=== PATIENT | female | born 1935 | race Caucasian/White ===

== ENCOUNTER → 2016-10-23 | Outpatient (CLI) | payer MEDICARE, OTHER ==
[~2016-10-23] MED LIST: ASP81CT; BENZ-13 PO; CLD600T; FAMO20TA13; FLX20C; LEVO500T2 PO; OMG1KC; OSTEO BI FLEX; PRILOSEC; SMV20T; [UNRECOGNIZED DRUG - OTHER]
--- OUTSIDE RECORDS SUMMARY | 2016-10-23 10:02 | XMS REPORT | Continuity of Care Document ---
Author Author [facility] Organization [facility] Address Unknown Phone Unavailable Allergies Active Description Code Type Severity Reaction Onset Reported/Identified Relationship to Patient Clinical Status Yes No Known Drug Allergies [id number] Drug Allergy Unknown N/ A 06/02/2007 Medications Problems Date Dx Coded Attending Type Code Diagnosis Diagnosed By 06/02/2010 Ot 535.40 06/02/2010 Ot V12.72 06/02/2010 Ot V45.89 06/02/2010 Ot V67.09 10/16/2013 MARIO NDIAYE DO Ot V43.65 10/16/2013 MARIO NDIAYE DO Ot V54.81 10/16/2013 MARIO NDIAYE DO Ot V57.1 02/07/2014 VENTURA ABDI APRN Ot V43.65 02/07/2014 VENTURA ABDI 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 Ot V54.81 02/07/2014 VENTURA ABDI APRN Ot V57.1 08/27/2014 GALO SOLO DO Ot V76.12 09/11/2014 GALO SOLO DO Ot 433.10 09/11/2014 GALO SOLO DO Ot 441.4 06/18/2015 GATO HARRIS DO Ot J02.9 06/18/2015 GATO HARRIS DO Ot J40 06/18/2015 GATO HARRIS DO Ot R05 08/06/2015 Ot 786.05 08/06/2015 Ot 786.2 08/06/2015 Ot V76.12 08/06/2015 Ot 733.90 08/06/2015 Ot V76.12 08/06/2015 Ot 493.22 08/06/2015 Ot 786.2 08/06/2015 Ot V76.12 08/06/2015 JAILYN SMITH Ot 536.8 08/06/2015 JAILYN SMITH Ot 784.99 08/06/2015 JAILYN SMITH Ot 786.2 08/06/2015 SHAUNA SCHRADER DO Ot 787.21 08/06/2015 SOLO DO, GALO Ot V76.12 08/06/2015 ZELDA MARIO AMBROSIO Ot 285.9 08/06/2015 ZELDA MARIO AMBROSIO Ot 780.79 08/06/2015 ZELDA DOMARIO Ot 719.45 08/06/2015 ZELDA DOMARIO Ot 722.10 08/06/2015 ZELDA DOMARIO Ot 738.4 08/06/2015 SOLO DO, GALO Ot V76.12 08/06/2015 SOLO DO, GALO Ot 433.10 08/06/2015 SOLO DO, GALO Ot 441.4 09/03/2015 SOLO DO, GALO Ot Z12.31 Procedures Results Encounters ACCT No. Visit Date/Time Discharge Status Pt. Type Provider Facility Loc./Unit Complaint [id number] 08/06/2015 10:30:00 2014 23:59:59 CLS Outpatient SOLOALFONSO AMBROSIO GALO [facility] RAD [id number] 06/18/2015 16:37:00 2014 18:52:00 DIS Emergency GATO HARRIS DO [facility] ER [id number] 08/10/2014 08:56:00 2013 23:59:59 CLS Outpatient EDIL AMBROSIO GALO [facility] RAD [id number] 08/01/2014 09:00:00 2013 23:59:59 CLS Outpatient EDIL AMBROSIO GALO [facility] RAD [id number] 01/25/2014 09:01:00 2013 16:00:00 DIS Outpatient VENTURA ABDI APRN [facility] REHAB [id number] 01/26/2014 13:33:00 2013 23:59:59 CLS Outpatient ZELDA AMBROSIO MARIO Summers [facility] RAD [id number] 09/15/2013 12:57:00 2013 10:24:00 DIS Outpatient ZELDA AMBROSIO MARIO Summers [facility] REHAB [id number] 07/28/2013 08:55:00 2012 23:59:59 CLS Outpatient ZELDA MARIO AMBROSIO [facility] [id number] 07/13/2013 08:58:00 2012 23:59:59 CLS Outpatient GALO SOLO DO [facility] RAD [id number] 03/13/2013 09:59:00 2012 23:59:59 CLS Outpatient RACIEL DO SHAUNA Radha [facility] RAD [id number] 02/08/2013 08:32:00 2012 23:59:59 CLS Outpatient JAILYN SMITH [facility] RAD [id number] 08/06/2015 10:30:00 Document Registration [id number] 05/19/2012 11:12:00 Document Registration [id number] 08/07/2011 09:25:00 Document Registration [id number] 05/27/2011 09:47:00 Document Registration [id number] 05/13/2011 11:22:00 Document Registration [id number] 05/04/2011 08:33:00 Document Registration [id number] 06/02/2010 08:02:00 Document Registration [id number] 04/22/2010 08:04:00 Document Registration
--- NOTE | 2016-10-23 12:41 | Diagnostic Imaging Report ---
Bilateral screening mammogram. The current study was also evaluated with a Computer Aided Detection (CAD) system. INDICATION: Screening. No current complaints stated on the questionnaire. COMPARISON: 08/06/2015. FINDINGS: The breasts are composed of heterogeneously dense parenchyma which may decrease mammographic sensitivity. There is a focal asymmetry seen in the slightly medial central aspect of the right breast, favored to be summation artifact of parenchyma. It appears, however, more prominent compared to the prior exam. The left breast demonstrates no definite mass or suspicious calcifications. IMPRESSION: Questionable 8-mm focal central asymmetry in the right breast seen. Focal compression views and ultrasound evaluation recommended. ACR BI-RADS Category 0: Incomplete. (Needs additional imaging evaluation). Result letter will be mailed to the patient. Note: At least 10% of breast cancer is not imaged by mammography. Dictated by: Dictated on workstation # [id number]
== END ==
LOC: RAD 09:58
PROVIDERS: ATTEND Internal Medicine
DX: Z12.31 Encounter for screening mammogram for malignant neoplasm of breast (principal)
CPT/HCPCS: 77067

== ENCOUNTER → 2016-11-02 | Outpatient (CLI) | payer MEDICARE, OTHER ==
--- OUTSIDE RECORDS SUMMARY | 2016-11-02 08:52 | XMS REPORT | Continuity of Care Document ---
Author Author [facility] Organization [facility] Address Unknown Phone Unavailable Allergies Active Description Code Type Severity Reaction Onset Reported/Identified Relationship to Patient Clinical Status Yes No Known Drug Allergies [id number] Drug Allergy Unknown N/ A 06/02/2007 Medications Problems Date Dx Coded Attending Type Code Diagnosis Diagnosed By 06/02/2010 Ot 535.40 06/02/2010 Ot V12.72 06/02/2010 Ot V45.89 06/02/2010 Ot V67.09 10/16/2013 MARIO NDIAYE DO Ot V43.65 KNEE JOINT REPLACEMENT STATUS 10/16/2013 MARIO NDIAYE DO Ot V54.81 AFTERCARE FOLLOWING JOINT REPLACEMENT 10/16/2013 MARIO NDIAYE DO Ot V57.1 PHYSICAL THERAPY NEC 02/07/2014 VENTURA ABDI APRN Ot V43.65 KNEE JOINT REPLACEMENT STATUS 02/07/2014 VENTURA ABDI ELECTROPHYSIOLOGY TECHNOLOGIST Ot V54.81 AFTERCARE FOLLOWING JOINT REPLACEMENT 02/07/2014 VENTURA ABDI APRN Ot V57.1 PHYSICAL THERAPY NEC 08/27/2014 GALO SOLO DO Ot V76.12 09/11/2014 GALO SOLO DO Ot 433.10 09/11/2014 GALO SOLO DO Ot 441.4 06/18/2015 GATO HARRIS DO Ot J02.9 ACUTE PHARYNGITIS, UNSPECIFIED 06/18/2015 GATO HARRIS DO Ot J40 BRONCHITIS, NOT SPECIFIED ACUTE OR CH 06/18/2015 GATO HARRIS DO Ot R05 COUGH 08/06/2015 Ot 786.05 08/06/2015 Ot 786.2 08/06/2015 Ot V76.12 08/06/2015 Ot 733.90 08/06/2015 Ot V76.12 08/06/2015 Ot 493.22 08/06/2015 Ot 786.2 08/06/2015 Ot V76.12 08/06/2015 JAILYN SMITH RPA-C Ot 536.8 08/06/2015 JAILYN SMITH RPA-C Ot 784.99 08/06/2015 JAILYN SMITH RPA-C Ot 786.2 08/06/2015 SHAUNA SCHRADER DO Ot 787.21 08/06/2015 SOLO DO GALO Ot V76.12 08/06/2015 ZELDA DO MARIO F Ot 285.9 08/06/2015 ZELDA DO MARIO F Ot 780.79 08/06/2015 ZELDA DO MARIO F Ot 719.45 08/06/2015 ZELDA DO MARIO F Ot 722.10 08/06/2015 ZELDA DO MARIO F Ot 738.4 08/06/2015 SOLO DO, GALO Ot V76.12 08/06/2015 SOLO DO, GALO Ot 433.10 08/06/2015 SOLO DO, GALO Ot 441.4 09/03/2015 SOLO DO, GALO Ot Z12.31 10/23/2016 Ot 786.05 SHORTNESS OF BREATH 10/23/2016 Ot 786.2 COUGH 10/23/2016 Ot 733.90 BONE CARTILAGE DIS NOS 10/23/2016 Ot V76.12 OTH SCREEN MAMMO-MALIGN NEOPLASM OF OLGA LIDIA 10/23/2016 Ot 493.22 CHRONIC OBSTRUCTIVE ASTHMA, W (ACUTE) EX 10/23/2016 Ot 786.2 COUGH 10/23/2016 Ot V76.12 OTH SCREEN MAMMO-MALIGN NEOPLASM OF OLGA LIDIA 10/23/2016 JAILYN SMITH RPA-C Ot 536.8 STOMACH FUNCTION DIS NEC 10/23/2016 JAILYN SMITH RPA-C Ot 784.99 OTHER SYMPTOMS INVOLVING HEAD AND NECK 10/23/2016 JAILYN SMITH RPA-C Ot 786.2 COUGH 10/23/2016 SHAUNA SCHRADER DO Ot 787.21 DYSPHAGIA, ORAL PHASE 10/23/2016 SOLO DO GALO Ot V76.12 OTH SCREEN MAMMO-MALIGN NEOPLASM OF OLGA LIDIA 10/23/2016 ZELDA DO MARIO F Ot 285.9 ANEMIA NOS 10/23/2016 ZELDA AMBROSIO MARIO F Ot 780.79 OTH MALAISE FATIGUE 10/23/2016 ZELDA AMBROSIO MARIO F Ot 719.45 JOINT PAIN-PELVIS 10/23/2016 MARIO NDIAYE DO Ot 722.10 LUMBAR DISC DISPLACEMENT 10/23/2016 MARIO NDIAYE DO Ot 738.4 ACQ SPONDYLOLISTHESIS 10/23/2016 GALO SOLO DO Ot V76.12 OT SCREEN MAMMO-MALIGN NEOPLASM OF OLGA LIDIA 10/23/2016 GALO SOLO DO Ot 433.10 CAROTID ARTERY OCCLUSION W O CEREBRAL IN 10/23/2016 GALO SOLO DO Ot 441.4 ABDOM AORTIC ANEURYSM 10/23/2016 GALO SOLO DO Ot Z12.31 ENCNTR SCREEN MAMMOGRAM FOR MALIGNANT NE Procedures Results Encounters ACCT No. Visit Date/Time Discharge Status Pt. Type Provider Facility Loc./Unit Complaint [id number] 08/06/2015 10:30:00 2014 23:59:59 CLS Outpatient GALO SOLO DO [facility] RAD SCREENING [id number] 06/18/2015 16:37:00 2014 18:52:00 DIS Emergency KIMBERLYRISSA Black DOA Kimberly [facility] ER COUGH [id number] 08/10/2014 08:56:00 2013 23:59:59 CLS Outpatient GALO SOLO DO [facility] RAD AAA,CAROTID STENOSIS [id number] 08/01/2014 09:00:00 2013 23:59:59 CLS Outpatient GALO SOLO DO [facility] RAD SCREENING [id number] 01/25/2014 09:01:00 2013 16:00:00 DIS Outpatient VENTURA ABDI APRN [facility] REHAB S/P L TKA GRADE 1 PCL STRAIN [id number] 01/26/2014 13:33:00 2013 23:59:59 CLS Outpatient MARIO NDIAYE DO [facility] RAD LOW BACK PAIN,HIP PAIN [id number] 09/15/2013 12:57:00 2013 10:24:00 DIS Outpatient MARIO NDIAYE DO [facility] REHAB LEFT TKR [id number] 07/28/2013 08:55:00 2012 23:59:59 CLS Outpatient ZELDA MARIO AMBROSIO [facility] HH ANEMIA, FATIGUE [id number] 07/13/2013 08:58:00 2012 23:59:59 CLS Outpatient GALO SOLO DO [facility] RAD ROUTINE [id number] 03/13/2013 09:59:00 2012 23:59:59 CLS Outpatient DEFFENBAUGH SHAUNA AMBROSIO [facility] RAD DIFFICULTY SWALLOWING [id number] 02/08/2013 08:32:00 2012 23:59:59 CLS Outpatient JAILYN SMITH [facility] RAD CHRONIC COUGH,CHOKING [id number] 10/23/2016 09:58:00 ACT Outpatient GALO SOLO DO [facility] RAD SCREENING [id number] 08/06/2015 10:30:00 Document Registration [id number] 05/19/2012 11:12:00 Document Registration [id number] 08/07/2011 09:25:00 Document Registration [id number] 05/27/2011 09:47:00 Document Registration [id number] 05/13/2011 11:22:00 Document Registration [id number] 05/04/2011 08:33:00 Document Registration [id number] 06/02/2010 08:02:00 Document Registration [id number] 04/22/2010 08:04:00 Document Registration
--- NOTE | 2016-11-02 09:28 | Diagnostic Imaging Report ---
EXAMINATION: Right breast diagnostic mammogram. INDICATION: Asymmetries in the central slightly medial aspect of the right breast. CAD is utilized. The current study was also evaluated with a Computer Aided Detection (CAD) system. FINDINGS: When evaluated with focal compression views the previously seen asymmetries appear less prominent and may relate to summation artifact of the background parenchyma. IMPRESSION: Less prominent asymmetry and focal compression views favor of summation artifact of parenchyma. Ultrasound evaluation pending. BI-RADS 0. ACR BI-RADS Category 0: Incomplete. (Needs additional imaging evaluation). Result letter will be mailed to the patient. Note: At least 10% of breast cancer is not imaged by mammography. Dictated by: Dictated on workstation # [id number]
--- NOTE | 2016-11-02 14:53 | Diagnostic Imaging Report ---
EXAMINATION: Right breast ultrasound. INDICATION: Asymmetry along the central slightly medial aspect of the right breast. FINDINGS: The entire breast in the four-quadrants and retroareolar region were scanned with no definite abnormality seen. IMPRESSION: Negative study. The mammographic asymmetry is likely related to summation artifact of parenchyma. A routine followup mammogram in 12 months is recommended. ACR BI-RADS Category 1: Negative. Dictated by: Dictated on workstation # [id number]
== END ==
LOC: RAD 08:47
PROVIDERS: ATTEND Internal Medicine
DX: N64.89 Other specified disorders of breast (principal)
CPT/HCPCS: 76641

== ENCOUNTER → 2017-10-25 | Outpatient (CLI) | payer MEDICARE, OTHER ==
--- NOTE | 2017-10-25 12:23 | Diagnostic Imaging Report ---
INDICATION: Routine screening. COMPARISON: 10/23/2016 and 08/06/2015. TECHNIQUE: Screening digital mammography was performed bilaterally with a Computer Aided Detection (CAD) system. FINDINGS: Both breasts demonstrate moderate parenchymal heterogeneity and increased density, limiting the sensitivity of mammography. No dominant mass or malignant appearing microcalcifications are seen. The axillae are unremarkable. IMPRESSION: No mammographic features suspicious for malignancy are identified. ACR BI-RADS Category 1: Negative. Result letter will be mailed to the patient. Note: At least 10% of breast cancer is not imaged by mammography. Dictated by: Dictated on workstation # [id number]
== END ==
LOC: RAD 08:04
PROVIDERS: ATTEND Internal Medicine
DX: Z12.31 Encounter for screening mammogram for malignant neoplasm of breast (principal)
CPT/HCPCS: 77067

== ENCOUNTER → 2018-11-18 | Outpatient (CLI) | payer MEDICARE, OTHER ==
[~2018-11-18] MED LIST changes: -BENZ-13 PO; +BENZ100C18 PO
--- NOTE | 2018-11-18 19:33 | Diagnostic Imaging Report ---
INDICATION: Routine screening. COMPARISON: Prior mammogram from 10/25/2017 and 10/23/2016. EXAMINATION: 2D and 3D bilateral screening mammography was performed with CAD. The current study was also evaluated with a Computer Aided Detection (CAD) system. FINDINGS: Both breasts are heterogeneously dense, limiting the sensitivity of mammography. No mass or malignant appearing microcalcifications are seen. The axillae are unremarkable. IMPRESSION: No mammographic features suspicious for malignancy are identified. ACR BI-RADS Category 1: Negative. Result letter will be mailed to the patient. Note: At least 10% of breast cancer is not imaged by mammography. Dictated by: Dictated on workstation # [id number]
== END ==
LOC: RAD 08:02
PROVIDERS: ATTEND Internal Medicine
DX: Z12.31 Encounter for screening mammogram for malignant neoplasm of breast (principal)
CPT/HCPCS: 77067

== ENCOUNTER 2023-03-30 07:51 | Emergency (ER) | payer MEDICARE, OTHER ==
[~2023-03-30] VITALS: Ht 167 cm; Wt 55.0 kg
--- NOTE | 2023-03-30 08:14 | ED Cough/URI ---
General Chief Complaint: Cough/Cold/Flu Symptoms Stated Complaint: SORE THROAT | COUGH Nursing Triage Note: PT AMB TO RM 6 PT CO OF SORETHROAT COUGH DENIES FEVERS, [place] 5/10. PT ALSO CO OF VERTIGO AT TIMES Source: patient Exam Limitations: no limitations History of Present Illness Date Seen by Provider: Mar 30, 2023 Time Seen by Provider: 08:06 Initial Comments 87-year-old female presents for cough, sore throat and mild headache since Sun day. She denies fevers or chills. Cough is productive of yellow sputum. No sick contacts. No chest pain. She gets short of breath during her coughing spells but not outside of this. She denies any medical comorbidities. All other systems reviewed and negative except documented per HPI. Voice recognition software was used to help create this chart Allergies and Home Medications Allergies Coded Allergies: No Known Drug Allergies (Verified Allergy, Unknown, 06/02/07) Patient Home Medication List Home Medication List Reviewed: Yes Aspirin (Aspirin) 81 Mg Tablet, (Reported) Entered as Reported by: JAMAAL BRADY on 06/02/07 1037 Benzonatate (Tessalon Perles) 100 Mg Capsule, 1-2 TAB PO TID Prescribed by: GATO HARRIS on 06/18/15 180 Calcium Carbonate/Vitamin D3 (Rubio-600 W/Vit D Tablet) 1 Tab Tablet, (Reported) Entered as Reported by: JAMAAL BRADY on 06/02/07 1034 Famotidine (Pepcid) 20 Mg Tablet, (Reported) Entered as Reported by: JAMAAL BRADY on 06/02/07 1038 Fluoxetine Hcl (Prozac) 20 Mg Capsule, (Reported) Entered as Reported by: JAMAAL BRADY on 06/02/07 1037 Levofloxacin (Levaquin) 500 Mg Tablet, 500 MG PO DAILY Prescribed by: GATO HARRIS on 06/18/15 1809 [place] 3 Polyunsat Fatty Acids (Fish Oil) 1,000 Mg Cap, (Reported) Entered as Reported by: JAMAAL BRADY on 06/02/07 1036 Simvastatin (Zocor) 20 Mg Tablet, (Reported) Entered as Reported by: JAMAAL BRADY on 06/02/07 1035 [Osteo Bi Flex] , (Reported) Entered as Reported by: JAMAAL BRADY on 06/02/07 1036 [Prilosec] , (Reported) Entered as Reported by: JAMAAL BRADY on 06/02/07 1038 [Womens Vit.] , (Reported) Entered as Reported by: JAMAAL BRADY on 06/02/07 1035 Review of Systems Review of Systems Constitutional: see HPI Past Mzzeibw-Gajpwy-Dvbsur Hx Patient Social History Tobacco Use?: No Substance use?: No Alcohol Use?: No Pt feels they are or have been: No Immunizations Up To Date First/Initial COVID19 Vaccinat: NUVIA Second COVID19 Vaccination Jonathan: YES Third COVID19 Vaccination Date: YES Seasonal Allergies Seasonal Allergies: No Past Medical History Abdominal, Appendectomy, Hysterectomy, Joint Replacement, Oophorectomy, Orthopedic Asthma High Cholesterol PAINT MIXER History: Menopausal Gastroesophageal Reflux, Hiatal Hernia Arthritis, Fractures Anxiety, Depression Physical Exam Vital Signs - First Documented 03/30/23 08:05 Temp 37.2 Pulse 56 Resp 16 B/P (MAP) 177/106 (129) Pulse Ox 96 Capillary Refill : Less Than 3 Seconds Height: 5'6.00" Weight: 150lbs. oz. 68.035687xy; 19.00 BMI Method:Stated General Appearance: no apparent distress HEENT: PERRL/EOMI, normal ENT inspection, TMs normal, pharynx normal Neck: non-tender, full range of motion, supple, normal inspection Respiratory: chest non-tender, lungs clear, normal breath sounds, no respirator y distress, no accessory muscle use Cardiovascular: regular rate, rhythm, no murmur Gastrointestinal: normal bowel sounds, non tender, soft, no organomegaly Extremities: normal range of motion, non-tender, normal inspection, no pedal edema, normal capillary refill Neurologic/Psychiatric: alert, normal mood/affect, oriented x 3 Skin: normal color, warm/dry Progress/Results/Core Measures Suspected Sepsis SIRS Temperature: Pulse: 56 Respiratory Rate: 16 Blood Pressure 177 /106 Mean: 129 Results/Orders Lab Results Laboratory Tests Test 03/30/23 08:11 Range/Units SARS-CoV-2 RNA (RT-PCR) Not Detected Not Detecte Group A Streptococcus Screen NEGATIVE NEGATIVE My Orders Orders - AMILCAR CHERY DO Rapid Strep A Screen (03/30/23 08:11) Chest 1 View, Ap/Pa Only (03/30/23 08:11) Covid 19 Inhouse Test (03/30/23 08:11) Throat Culture Strep A Confirm (03/30/23 08:11) Vital Signs/I&O 03/30/23 08:05 Temp 37.2 Pulse 56 Resp 16 B/P (MAP) 177/106 (129) Pulse Ox 96 Capillary Refill : Less Than 3 Seconds Blood Pressure Mean: 129 Departure Communication (Admissions) Patient is hemodynamically stable. Initial differential considerations include COVID or other viral URI, strep pharyngitis, pneumonia. Chest x-ray is negative for pneumonia or any focal infiltrate, edema. COVID test and strep testing are negative. This is likely viral URI. No indication for antibiotics or other work-up at this time. She has normal vital signs and normal exam. She is discharged home in stable condition. Impression Primary Impression: Upper respiratory infection Qualified Codes: J06.9 - Acute upper respiratory infection, unspecified Disposition: HOME, SELF-CARE Condition: Stable Departure-Patient Inst. Referrals: GALO SOLO DO (PCP/Family) Primary Care Physician Patient Instructions: Viral Upper Respiratory Infection, Adult (DC) Add. Discharge Instructions: Your chest x-ray is negative as are your COVID and strep test. This is likely viral bronchitis. I recommend you increase your fluids, rest when needed. Symptoms will likely resolve on their own within 7 to 10 days. If your symptoms last more than 10 to 14 days you may need antibiotics. I recommend you follow- up with your primary doctor at that time should the need arise. Return to the emergency department for any severe concerns All discharge instructions reviewed with patient and/or family. Voiced understanding. AMILCAR CHERY DO Mar 30, 2023 08:14
--- NOTE | 2023-03-30 08:52 | Diagnostic Imaging Report ---
CLINICAL INDICATION: Patient with cough and dyspnea. Patient has sore throat and headache. EXAM: Portable chest x-ray upright view. COMPARISON: Chest x-ray dated 06/18/2015. FINDINGS: Lungs/pleura: Lungs are clear. There is no pneumothorax. There is no pleural effusion. Mediastinum: Unremarkable. Pulmonary vasculature: Unremarkable. Heart: Unremarkable. Bones/extrathoracic soft tissue: There are hypertrophic spurs involving the thoracic spine. IMPRESSION: Stable chest x-ray exam with no radiographic evidence of acute cardiopulmonary process. Dictated by: Dictated on workstation # [id number]
[2023-03-30 09:10] VITALS: BP 177/106
== END 2023-03-30 09:09 | disposition home or self-care (01) ==
LOC: EDUNIT# 07:51 → ER 07:55
DX: J06.9 Acute upper respiratory infection, unspecified (principal); Z20.822 Contact with and (suspected) exposure to COVID-19
CPT/HCPCS: 71045; 87430; 87636